=== PATIENT | female | born 1990 | race Caucasian/White ===

== ENCOUNTER 2022-03-29 13:07 | Emergency (ER) | payer OTHER, SELFPAY ==
[2022-03-29 13:12] VITALS: BP 161/77; PULSE 121; RESP 18; TEMP 36.7; O2SAT 99
--- NOTE | 2022-03-29 13:12 | ED.URI ---
HPI - URI/Sore Throat General Chief Complaint: Eye Problems Stated Complaint: Eye Problem/Sore Throat Time Seen by Provider: 03/29/22 13:15 Source: patient Mode of arrival: ambulatory Limitations: no limitations History of Present Illness HPI Narrative: Jessi is a 31-year-old female patient presenting to the clinic today with complaints of eye problems and sore throat x1 day. She reports symptoms just started this morning when she awoke. She denies any known fever. MD elicited complaint: sore throat and nasal congestion Related Data Home Medications Medication Instructions Recorded Confirmed albuterol sulfate 90 mcg/actuation inhalation 03/29/22 aerosol inhaler budesonide-formoterol HFA 80 inhalation 03/29/22 mcg-4.5 mcg/actuation aerosol inhaler (Symbicort) bupropion HCl 300 mg 24 hr tablet, mg PO 03/29/22 extended release levothyroxine 50 mcg tablet mcg 03/29/22 meloxicam 15 mg tablet mg 03/29/22 Allergies Allergy/AdvReac Type Severity Reaction Status Date / Time No Known Drug Allergies Allergy Unknown Unknown Verified 03/29/22 13:30 Review of Systems Review of Systems: Pertinent positives per HPI. Patient denies any fever, chills, rash, headache, visual changes, dizziness, cough, shortness of breath, chest pain, palpitations, nausea, vomiting, diarrhea, constipation, abdominal pain, or any urinary issues. PMFSH Comments At the time of my signature, I reviewed and agree with the nursing past medical, surgical, social, and family history. There is no relevant family history pertinent to the patient complaint. Exam Narrative: General: Well-developed, well nourished, in no apparent distress Head: Normocephalic, atraumatic Eyes: Pupils equally round and reactive to light bilaterally, EOM intact, right sclera and conjunctive clear, left sclera red and conjunctiva injected with yellow mucopurulent discharge coming from the eye. Ears: TMs intact and clear, ear canals clear, no drainage, grossly hearing normal. Nose: Nares patent, clear nasal discharge, no inflammation, no sinus tenderness. Mouth: Oral pharynx without lesions or masses, good dentition, MMM. oropharynx red with tonsillar swelling and white exudate Neck: Supple, trachea midline, enlargement of anterior cervical nodes, no thyroid masses or goiter palpable. Cardio: Regular rate and rhythm, s1 and s2 normal, no murmur appreciated. Resp: Clear to auscultation bilaterally, no rhonchi, rales, wheezing or rubs Course Course Emergency Course: Portions of this record may have been created with voice recognition software. Level of Care: Express Care Visit Vital Signs Vital signs: Vital Signs Temperature 36.7 C 03/29/22 13:12 Pulse Rate 121 H 03/29/22 13:12 Respiratory Rate 18 03/29/22 13:12 Blood Pressure 161/77 H 03/29/22 13:12 Pulse Oximetry 99 03/29/22 13:12 Oxygen Delivery Room Air 03/29/22 13:12 Temperature 36.7 C 03/29/22 13:12 Pulse Rate 121 H 03/29/22 13:12 Respiratory Rate 18 03/29/22 13:12 Blood Pressure 161/77 H 03/29/22 13:12 Pulse Oximetry 99 03/29/22 13:12 Oxygen Delivery Room Air 03/29/22 13:12 Vital signs reviewed MDM - URI/Sore Throat MDM Narrative Medical decision making narrative: At the time of visit patient is resting comfortably on the exam table. I suspect the patient has exudative pharyngitis likely strep and conjunctivitis. Prescription for Polytrim eye drops and amoxicillin was sent to the pharmacy. Supportive measures were discussed with the patient and she voiced understanding of discharge instructions and agrees to treatment plan. Differential Diagnosis Differential diagnosis: Likely upper respiratory infection, otitis media, sinusitis, viral infection, bronchitis, influenza, pharyngitis and other ( COVID, conjunctivitis) Discharge Plan Discharge Clinical Impression: Exudative pharyngitis, Conjunctivitis Patient Disposition: Home, Self-Care
== END 2022-03-29 13:30 | disposition home or self-care (01) ==
PROVIDERS: Emergency Provider Nurse Practitioner Family; PCP Family Medicine
DX: J02.9 Acute pharyngitis, unspecified (principal); H10.9 Unspecified conjunctivitis; J45.909 Unspecified asthma, uncomplicated; E03.9 Hypothyroidism, unspecified
CPT/HCPCS: 99213; G0463